=== PATIENT | male | born 1980 | race American Indian/Alaskan Native ===

== ENCOUNTER 2020-10-27 19:52 | Emergency (ER) | payer BC, OTHER ==
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
[2020-10-28] MEDS ORDERED: KETOROLAC 30 MG/1 ML INJ IV ONE (00:42)
[2020-10-28 01:54] VITALS: BP 183/130
== END 2020-10-28 02:00 | disposition home or self-care (01) ==
LOC: ED 19:52
DX: M25.512 Pain in left shoulder (principal); I10 Essential (primary) hypertension; E78.00 Pure hypercholesterolemia, unspecified; Z72.89 Other problems related to lifestyle; Z79.899 Other long term (current) drug therapy; V89.2XXA Person injured in unspecified motor-vehicle accident, traffic, initial encounter; Y93.89 Activity, other specified; Y92.488 Other paved roadways as the place of occurrence of the external cause; Y99.8 Other external cause status
CPT/HCPCS: 96374; 96375; 96376; 99282; J1885